=== PATIENT | female | born 1950 | race Caucasian/White ===

== ENCOUNTER 2019-05-09 12:54 | Emergency (ER) | payer MEDICARE, MEDICAID ==
[~2019-05-09] VITALS: Ht 152.4 cm; Wt 90.0 kg
[~2019-05-09 12:54] MED LIST: ACET-812 PO; ALBU18HF2 INH; ARIP400S3 IM; CELE-193 PO; CETI10TA15 PO; CHOL400T14 PO; DEXT1CAP3 PO; DIVA-76 PO; DOCU-329 PO; FURO-150 PO; LEVO75TA PO; LISI-600 PO; LORA2TAB96 PO; METF500T PO; NITR0.4T51 SL; NITR50CA PO; PALI234D IM; POLY17PO10 PO; POTA8TAB3 PO; SOLI10TA2 PO; VENL-190 PO
--- NOTE | 2019-05-09 13:15 | NUR ---
PATIENT BIB EMS WITH C/O WANDERING OUT OF CARE FACILITY. CONSERVATOR THOUGHT PATIENT WAS DANGER TO SELF AND CALLED [facility], WHO WENT TO THE JAIL AND WROTE [id number]. PATIENT IS ALERT AND COOPERATIVE ON ARRIVAL. THOUGHT PROCESSES ARE DISORGANIZED, BUT SHE IS ABLE TO ANSWER BASIC QUESTIONS. PATIENT HAVING THOUGHTS TO HARM HERSELF BY CUTTING HER WRISTS AND WANTS TO GO TO [employer] FOR THE ITEMS TO CARRY OUT PLAN BECAUSE "THEY ARE HAVING A SALE". WORRY ABOUT GETTING CORONAVIRUS AND DOES NOT WANT TO BE "IN THE WORLD" ANYMORE.
[2019-05-09 13:19] LABS: BASOPHILS % (AUTO) 0.5 % (0-1); EOSINOPHILS # (AUTO) 0.1 X10'3 (0-0.9); EOSINOPHILS % (AUTO) 2.5 % (0-6); HEMATOCRIT 33.2 % (35.0-45.0); HEMOGLOBIN 11.2 g/dl (12.0-16.0); LYMPHOCYTES # (AUTO) 1.6 X10'3 (1.1-4.8); LYMPHOCYTES % (AUTO) 27.9 % (21-51); MEAN CORPUSCULAR HEMOGLOBIN 30.1 PG (27.0-31.0); MEAN CORPUSCULAR HGB CONC 33.6 g/dL (33.0-36.5); MEAN CORPUSCULAR VOLUME 89.6 FL (78-98); MEAN PLATELET VOLUME 7.9 FL (7.4-10.4); MONOCYTES # (AUTO) 0.6 X10'3 (0-0.9); NEUTROPHILS # (AUTO) 3.4 X10'3 (1.8-7.7); NEUTROPHILS % (AUTO) 58.1 % (42-75); PLATELET COUNT 194 X10'3 (140-440); RED BLOOD COUNT 3.71 X10'6 (4.20-5.60); RED CELL DISTRIBUTION WIDTH 14.3 % (11.5-14.5); WHITE BLOOD COUNT 5.8 X10'3 (4.5-11.0)
[2019-05-09 13:36] LABS: ALANINE AMINOTRANSFERASE 13 U/L (12-78); ALBUMIN 3.2 G/DL (3.4-5.0); ALBUMIN/GLOBULIN RATIO 0.9 (1.1-1.5); ALKALINE PHOSPHATASE 50 IU/L (46-116); ANION GAP 1 (8-16); ASPARTATE AMINO TRANSFERASE 13 U/L (10-37); BILIRUBIN,TOTAL 0.3 MG/DL (0.1-1.0); BLOOD UREA NITROGEN 24 MG/DL (7-18); BUN/CREATININE RATIO 26.1 (6.6-38.0); CALCIUM 9.8 MG/DL (8.5-10.1); CHLORIDE 105 MMOL/L (99-107); CREATININE 0.92 MG/DL (0.40-0.90); GLUCOSE 133 MG/DL (70-104); SODIUM 141 MMOL/L (135-145); TOTAL CARBON DIOXIDE 34.7 MMOL/L (24-32); TOTAL PROTEIN 6.8 G/DL (6.4-8.2); eGFR 60 ML/MIN
[2019-05-09 14:09] LABS: URINE AMPHETAMINE SCREEN NEGATIVE (Neg); URINE BARBITUATE SCREEN NEGATIVE (Neg); URINE BENZODIAZEPINES SCREEN NEGATIVE (Neg); URINE CANNABINOID SCREEN NEGATIVE (Neg); URINE COCAINE SCREEN NEGATIVE (Neg); URINE METHADONE SCREEN NEGATIVE (Neg); URINE OPIATE SCREEN NEGATIVE (Neg); URINE PHENCYCLIDINE SCREEN NEGATIVE (Neg)
[2019-05-09 14:11] LABS: ETHANOL < 0.010 GM/DL (0.0-0.010)
[2019-05-09 14:12] LABS: CLARITY,URINE CLEAR (Clear); COLOR,URINE YELLOW (Yellow); GLUCOSE, URINE NEGATIVE (Neg); KETONES,URINE TRACE mg/dl (Neg); LEUKOCYTE ESTERASE ,URINE NEGATIVE (Neg); NITRITES, URINE NEGATIVE (Neg); OCCULT BLOOD,URINE NEGATIVE (Neg); PROTEIN,URINE NEGATIVE (Neg); UROBILINOGEN,URINE 0.2 E.U/dL (0.2-1.0)
[2019-05-09 14:14] LABS: UA COLLECTION TYPE STRAIGHT CATH
[2019-05-09] MEDS ORDERED: FLUT16SP11 BOTHNARES (17:41)
[2019-05-09] MEDS ORDERED: SODI44SP2 NAS (17:41)
--- NOTE | 2019-05-09 18:15 | NUR ---
Assumed care of patient. Pt. sleeping in ER room 14. Pt. has to be shaken to arouse. Pt. is moved to overflow bed 21. Pt. is calm and cooperative during move.
[2019-05-09] MEDS ORDERED: celeCOXIB 100mg capsule PO PRN (20:05)
[2019-05-09] MEDS ORDERED: nitroGLYCERIN 0.4mg SUBLingual tab SL PRN (20:05)
[2019-05-09] MEDS ORDERED: albuterol 2.5 MG/3 ML nebule NEB PRN (20:15)
[2019-05-09] MEDS ORDERED: acetaminophen 325mg tablet PO PRN (20:20)
--- NOTE | 2019-05-09 20:40 | NUR ---
Pt. is sitting up in her bed eating a snack. Pt is calm and cooperative. Pt. is alert and confused, able to answer why she is here, but unsure where here is. Pt. states "I went on a walk." Pt. denies SI at this time, but did say "I said I wanted to hurt myself, but I didn't mean it." Pt. 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 is up to bedside commode, states she uses a walker at home. Pt's anterior calves are red with trace of edema - will need to monitor. Pt. has a history of DMII and cellulitis. Pt. is on Macrodantin for UTI, not sure how long she has been taking it. Pt's urine was WNL.
--- NOTE | 2019-05-09 20:47 | NUR ---
pt packet faxed to [facility]
[2019-05-09] MEDS ORDERED: nitrofurantoin macrocrystal 50mg capsule PO SCH (21:00)
[2019-05-09] MEDS ORDERED: divalproex sodium 500mg tablet.DR PO SCH (21:00)
[2019-05-09] MEDS ORDERED: LORazepam 1 MG tablet PO SCH (21:00)
--- NOTE | 2019-05-09 21:20 | NUR ---
Pt's med rec from home indicates she takes 4mg of Lorazepam HS, not comfortable giving this dose. Spoke with - decreased Ativan to 2mg.
--- NOTE | 2019-05-09 23:33 | NUR ---
Pt. sleeping comfortable in supine position. Respirations even and unlabored.
--- NOTE | 2019-05-09 23:52 | NUR ---
Client to be admitted to [facility] for Bipolar DO per ADAM Helm/Perla Sher MD.
[2019-05-10] MEDS ORDERED: oxybutynin 5mg tablet PO SCH
--- NOTE | 2019-05-10 00:09 | NUR ---
Patient being transferred to [facility].
--- NOTE | 2019-05-10 02:15 | NUR ---
Patient was transferred up to [facility] via wheelchair. Pt. was accompanied by Cielo, LOTUS and security. Pt. was a little groggy due to being woken up. Pt. used bedside commode prior to transfer. Pt's belongings accompanied pt.
[2019-05-10 02:17] VITALS: BP 147/85
[2019-05-10] MEDS ORDERED: metFORMIN 500mg tablet PO SCH (07:00)
[2019-05-10] MEDS ORDERED: levoTHYROXINE 75mcg tablet PO SCH (08:00)
[2019-05-10] MEDS ORDERED: divalproex sodium 500mg tablet.DR PO SCH (08:00)
[2019-05-10] MEDS ORDERED: LORazepam 1 MG tablet PO SCH (08:00)
[2019-05-10] MEDS ORDERED: cholecalciferol (vitamin D) 400 unit tablet PO SCH (08:00)
[2019-05-10] MEDS ORDERED: docusate sod 250mg capsule PO SCH (08:00)
[2019-05-10] MEDS ORDERED: polyethylene glycol 3350 17gm powd pack PO SCH (08:00)
[2019-05-10] MEDS ORDERED: fluticasone nasal spray 16GM bottle NS SCH (08:00)
[2019-05-10] MEDS ORDERED: salt irrigation nasal spray 45 ML SPRAY NS SCH (08:00)
[2019-05-10] MEDS ORDERED: furosemide 20MG tablet PO SCH (08:00)
[2019-05-10] MEDS ORDERED: potassium chloride 8mEq ER tablet PO SCH (08:00)
[2019-05-10] MEDS ORDERED: venlafaxine XR 75mg capsule (Q24H) PO SCH (08:00)
[2019-05-10] MEDS ORDERED: cetirizine 10mg tablet PO SCH (08:00)
[2019-05-10] MEDS ORDERED: lisinopril 20mg tablet PO SCH (08:00)
[2019-06-09] MEDS ORDERED: aripiprazole 400mg suspension ER syringe IM SCH (08:00)
== END 2019-05-10 02:20 ==
LOC: ER 12:55
DX: F03.90 Unspecified dementia, unspecified severity, without behavioral disturbance, psychotic disturbance, mood disturbance, and anxiety (principal); R41.0 Disorientation, unspecified; I25.10 Atherosclerotic heart disease of native coronary artery without angina pectoris; I10 Essential (primary) hypertension; E11.9 Type 2 diabetes mellitus without complications; Z90.710 Acquired absence of both cervix and uterus; Z98.890 Other specified postprocedural states; Z98.51 Tubal ligation status; Z79.899 Other long term (current) drug therapy; Z88.2 Allergy status to sulfonamides
CPT/HCPCS: 36415; 80053; 80305; 80320; 81003; 84443; 85025; 99285

== ENCOUNTER 2019-05-10 00:05 | Inpatient (IN) | payer MEDICARE, MEDICAID ==
[~2019-05-10] VITALS: Ht 152.4 cm; Wt 63.3 kg
[~2019-05-10 00:05] MED LIST changes: +FLUT16SP11 BOTHNARES; -PALI234D IM; +SODI44SP2 NAS
--- NOTE | 2019-05-10 01:51 | NUR ---
ADMIT NOTE: LEGAL HOLD: [facility] conserved/5150 for DTS. Client admitted from ED. Client is currently living in a Board and Care, which she left and refused to return. Client reported that she was going to the hardware store (because they were having a sale) to buy items to kill herself. Client was assessed by [facility] and placed on a hold. Client has a hx of Bipolar DO and dementia. She has been cooperative with EMS and ED staff since admission. Client uses a walker for ambulation. Client arrived on the unit at 02:15 accompanied by Cielo Choi. Client transported in wheelchair. A set of vital signs were obtained, personal belongings were inventoried, a skin and physical assessment were done by Velia Ross 5150 Advisement was provided to client. Client cooperated with admission.
[2019-05-10] MEDS ORDERED: magnesium hydroxide 30ml (MOM) UD suspension PO PRN (02:05)
[2019-05-10] MEDS ORDERED: LORazepam 1 MG tablet PO PRN (02:05)
[2019-05-10] MEDS ORDERED: loperamide 2mg capsule PO PRN (02:05)
[2019-05-10] MEDS ORDERED: hydrOXYzine 25 MG tablet PO PRN (02:05)
[2019-05-10] MEDS ORDERED: mag hydrox/Alum hydrox/simeth 30ml oral suspension PO PRN (02:05)
[2019-05-10 03:00] VITALS: BP 140/67
[2019-05-10 07:43] VITALS: BP 140/79
--- NOTE | 2019-05-10 14:40 | NUR ---
Nursing Progress Note: Legal hold: LPS conserved. Client on voluntary/involuntary status for GD/ DTS. Report received from CLOVER Mcdonald with use of SBAR Why are they here: Client admitted from ED. Client is currently living in a Board and Care, which she left and refused to return. Client reported that she was going to the hardware store (because they were having a sale) to buy items to kill herself. Client was assessed by [facility] and placed on a hold. Client has a hx of Bipolar DO and dementia. She has been cooperative with EMS and ED staff since admission. Client uses a walker for ambulation. . Assessment What has happened this shift: Patient was with PCT at time of change of shift. Very pleasant, with tangential thoughts I like your glasses, that is a pretty .... When asked why she is here, she responds I was acting out but would not elaborate. Evaluated BLE which are reddened and painful to touch, no increased warmth or signs of injury. Patient states they have been this way a long time. Plan to have hospitalist evaluate. Denies A/V Hallucinations, does admit she is sad. States my doesnt live with me anymore When asked why she states he patient then states what makes her saddest is that she was bad and just left referring to why she is now here. She then looks at this writers shoes stating you wear black shoes, I wear socks. Evaluated by Hospitalist believes reddened legs are a result of poor perfusion, requests nursing to watch for any further symptoms. S/I, H/I: Denies I am sad A/VH: Denies Sleep: 2 hours reported ADL's: With assistance Group attendance: No groups Were meds taken: Yes Any med S/E: none observed or reported Mental Status Exam Appearance: Neatly groomed, wearing green scrub pants, personal shirt and slipper socks Eye contact: Direct Behavior: Calm, cooperative Speech: soft, fluctuates between Singaporean and Wolof Mood: Euthymic Affect: Congruent with mood Thought process: Tangential Thought Content: whatever her focus of interest is at the time Cognition: A & O X 3 Insight: poor Judgment: poor Interventions PRN's used: None Therapeutic interventions: 1:1 assessment, encouraged pt to express thoughts and feelings, active listening, therapeutic conversation, medication administration/education/ monitoring, encouragement to perform personal hygiene/skin care, behavior monitoring, line of sight for safety Restraints/seclusion/emergency medication: none required Justification of Continued Inpatient Treatment: Pt continues to require a safe and supportive environment, and remains GD r/t mental health. Is LPS conserved and awaiting placement.
[2019-05-10 19:00] VITALS: BP 168/71
[2019-05-10] MEDS ORDERED: nitroGLYCERIN 0.4mg SUBLingual tab SL PRN (19:20)
[2019-05-10] MEDS ORDERED: non-formulary drug (Acetaminophen (Tylenol Extra Strength) 1 TABLET) PO PRN (19:20)
[2019-05-10] MEDS ORDERED: aripiprazole 400mg suspension ER syringe IM SCH (19:20)
[2019-05-10] MEDS ORDERED: albuterol 2.5 MG/3 ML nebule NEB PRN (19:45)
[2019-05-10] MEDS: NUEDEXTA PO SCH (20:00)
[2019-05-10] MEDS: docusate sod 250mg capsule PO SCH (20:00)
[2019-05-10] MEDS: polyethylene glycol 3350 17gm powd pack PO SCH (20:00)
[2019-05-10] MEDS ORDERED: nitrofurantoin macrocrystal 50mg capsule PO SCH (21:00)
[2019-05-10] MEDS ORDERED: LORazepam 1 MG tablet PO SCH (21:00)
[2019-05-10] MEDS: oxybutynin 5mg tablet PO SCH (21:59)
[2019-05-10] MEDS: LORazepam 1 MG tablet PO SCH (21:59)
[2019-05-10] MEDS: divalproex sodium 500mg tablet.DR PO SCH (22:00)
[2019-05-10] MEDS: potassium chloride 8mEq ER tablet PO SCH (22:00)
[2019-05-10] MEDS: traZODone 50mg tablet PO PRN (23:24)
--- NOTE | 2019-05-11 00:54 | NUR ---
Nursing Progress Note: Legal hold: LPS conserved. Client on involuntary status for GD/ DTS. Report received from LILY Morrison with use of SBAR Why are they here: Client admitted from ED. Client is currently living in a Board and Care, which she left and refused to return. Client reported that she was going to the hardware store (because they were having a sale) to buy items to kill herself. Client was assessed by [facility] and placed on a hold. Client has a hx of Bipolar DO and dementia. She has been cooperative with EMS and ED staff since admission. Client uses a walker for ambulation. . Assessment What has happened this shift: Patient was sitting in her room finishing her dinner at shift change. This staff writer introduced self and pt. remembered this staff writer from down in Overflow. "Pt immediately begins with "I like your shoes, I like your glasses." "You got your shoes at [employer]." Pt. continues to be tangential and disorganized. "I can take a picture of myself." "I just lost my yearbook." "I went to [employer], it has been torn down." Pt. states "I am at "[facility]", but does not talk about how she got here. Pt. randomly spells out different words when she speaks. Pt. denies SI/HI, A/VH. Pt. states "I never wanted to hurt myself," when asked about SI. Pt states "I am not afraid anymore." Pt. is friendly and giggles at herself. Pt sings and each time staff walk by her door, she waves and says hello. Pt. does need assistance up to the bathroom, pt is reminded to use her call light and FWW. Pt. declined taking her Miralax and Colace. Pt. states she had a big, and hold her arms out wide, bowel movement. "I promise I had one." Pt's legs are red and warm to the touch, no c/o of pain. Pt's feet are elevated with pillows when in bed. Pt. is on Nudexta (quinidine), but medication is unavailable through the pharmacy, will need Conservator to bring in home med, will endorse to day shift. Pt. having Valproate level and A1c drawn in the A.M. Pt. was administered Trazadone 50mg, pt was till awake at 2330 and up coloring in her bed. Trazadone was effective. S/I, H/I: Pt. denies. "I will never say that again." (about wanting to harm herself.) A/VH: Pt. denies, none observed. Sleep: Currently sleeping. Trazadone 50mg was administered. Pt was still awake at 2330. See Sleep Assessment for total hours. ADL's: With assistance. Pt. uses FWW. Pt incontinent wears depends. Group attendance: stereotype finisher, no group. Were meds taken: Takes medication without hesitation. Pt. declined Miralax and Colace. Any med S/E: None observed or reported. Mental Status Exam Appearance: Neatly groomed, wearing green scrub top with blue sweater over it, blue pants and a blue hat. Eye contact: Direct Behavior: Calm, chatty, friendly Speech: Soft, talkative, increased rate. Mood: Euthymic, bright Affect: Congruent with mood Thought process: Tangential, disorganized Thought Content: Whatever her focus of interest is at the time Cognition: A & O X 3 Insight: Poor Judgment: Poor Interventions PRN's used: Trazadone Therapeutic interventions: 1:1 assessment, active listening, therapeutic conversation, medication administration/education/ monitoring, encouragement to perform personal hygiene/skin care, assist with some ADL's; Q15 min safety checks. Restraints/seclusion/emergency medication: N/A Justification of Continued Inpatient Treatment: Pt continues to require a safe and supportive environment, and remains GD r/t mental health. Is LPS conserved and awaiting placement.
[2019-05-11 07:30] VITALS: BP 160/76
[2019-05-11 07:51] VITALS: BP 160/76
[2019-05-11] MEDS: polyethylene glycol 3350 17gm powd pack PO SCH ×2 (08:00→20:00)
[2019-05-11] MEDS: NUEDEXTA PO SCH ×2 (08:00→20:00)
[2019-05-11] MEDS: lactobacillus rhamnosus 10,000 MMU CELLS/CAPSULE PO SCH (08:08)
[2019-05-11] MEDS: oxybutynin 5mg tablet PO SCH ×3 (08:08→21:16)
[2019-05-11] MEDS: venlafaxine XR 75mg capsule (Q24H) PO SCH (08:08)
[2019-05-11] MEDS: potassium chloride 8mEq ER tablet PO SCH ×2 (08:08→21:15)
[2019-05-11] MEDS: furosemide 20MG tablet PO SCH (08:08)
[2019-05-11] MEDS: LORazepam 1 MG tablet PO SCH ×2 (08:09→21:14)
[2019-05-11] MEDS: cholecalciferol (vitamin D) 400 unit tablet PO SCH ×2 (08:09→21:14)
[2019-05-11] MEDS: docusate sod 250mg capsule PO SCH ×2 (08:09→20:00)
[2019-05-11] MEDS: levoTHYROXINE 75mcg tablet PO SCH (08:09)
[2019-05-11] MEDS: divalproex sodium 500mg tablet.DR PO SCH ×2 (08:09→21:15)
[2019-05-11] MEDS: cetirizine 10mg tablet PO SCH (08:09)
[2019-05-11] MEDS: lisinopril 20mg tablet PO SCH (08:12)
[2019-05-11] MEDS: salt irrigation nasal spray 45 ML SPRAY NS SCH (08:12)
[2019-05-11 11:32] LABS: CHOL/HDL RATIO 2.9 (0.00-4.99); CHOLESTEROL 212 MG/DL (0-200); HDL CHOLESTEROL 72 MG/DL (35-60); LDL CHOLESTEROL 103 MG/DL (50-100); TRIGLYCERIDES 177 MG/DL (20-135); VALPROATE 80 UG/ML (50-100)
[2019-05-11] MEDS: acetaminophen 325mg tablet PO PRN ×2 (15:11→21:34)
--- NOTE | 2019-05-11 15:13 | NUR ---
Nursing Progress Note: Amelia Legal hold: LPS conserved. Client on involuntary status for GD/ DTS. Report received from CLOVER Mcdonald with use of SBAR Why are they here: Client admitted from ED. Client is currently living in a Board and Care, which she left and refused to return. Client reported that she was going to the hardware store (because they were having a sale) to buy items to kill herself. Client was assessed by [facility] and placed on a hold. Client has a hx of Bipolar DO and dementia. She has been cooperative with EMS and ED staff since admission. Client uses a walker for ambulation. . Assessment What has happened this shift: Patient was sound asleep at change of shift. Upon awakening, found to be saturated in urine. Assisted to BR and before she could sit down on the toilet, was incontinent of urine which covered the floor. Once in clean scrubs, ambulated to shower. Bathed with minimal assist. Took medications except for Miralax stating I had a BM yesterday, I dont need it. Patient denies depression or SI. Continues with tangential speech pattern jumping from one topic to another. Remains very pleasant and cooperative. Just prior to lunch, patient had a second episode of incontinence and was assisted by staff, per patient and supported by staff at [facility]. Patient does wear two briefs at a time to avoid these episodes. Remains in room but is friendly and waves at anyone who walks by. While meeting with provider, asked nurse for tylenol for neck pain. After taking the medication she then requested a bandaid for a bruise left by the wellness nurse rn stating she was redirecting my veins. S/I, H/I: I was just kidding, I had a coupon A/VH: Denies Sleep: 6.25 ADL's: Independent, according to [facility], they do not assist her. Group attendance: Currently no groups due to COVID 19 Were meds taken: yes, except for Miralax Any med S/E: Patient denies Mental Status Exam Appearance: Showered, wearing green scrubs due to incontinence. Eye contact: good Behavior: appropriate, calm Speech: enjoys being around others, is hard of hearing Mood: Upbeat Affect: Congruent with mood Thought process: disorganized, circumstantial Thought Content: whatever her current thoughts are (unable to stay focused on just one topic) Cognition: A & O X 3 Insight: Poor Judgment: Poor Interventions PRN's used: none Therapeutic interventions: 1:1 assessment, active listening, therapeutic conversation, medication administration/education/ monitoring, encouragement to perform personal hygiene/skin care, assist with some ADL's; Q15 min safety checks. Restraints/seclusion/emergency medication: N/A Justification of Continued Inpatient Treatment: Pt continues to require a safe and supportive environment, and remains GD r/t mental health. Is LPS conserved and awaiting placement.
[2019-05-11 19:00] VITALS: BP 122/56
[2019-05-11] MEDS: nitrofurantoin macrocrystal 50mg capsule PO SCH (21:16)
[2019-05-11] MEDS: atorvastatin 10mg tablet PO SCH (21:17)
[2019-05-11] MEDS: traZODone 50mg tablet PO PRN (22:32)
[2019-05-12] MEDS: traZODone 50mg tablet PO PRN (00:13)
--- NOTE | 2019-05-12 02:23 | NUR ---
Nursing Progress Note: Legal hold: LPS conserved. Client on involuntary status for GD/ DTS. Report received from LILY Morrison with use of SBAR Why are they here: Client admitted from ED. Client is currently living in a Board and Care, which she left and refused to return. Client reported that she was going to the hardware store (because they were having a sale) to buy items to kill herself. Client was assessed by [facility] and placed on a hold. Client has a hx of Bipolar DO and dementia. She has been cooperative with EMS and ED staff since admission. Client uses a walker for ambulation. . Assessment What has happened this shift: Pt. was sitting in her room finishing her dinner at shift change. Pt. greets this copywriter with a smile and begins with her "I like...." Pt. makes random statements about her family. "I saw by brother again." "I miss my brother." "My mom used to shake me (and pt. rocks back and forth." Pt. likes to talk to talk. "I am [employer]," "I am witchy woman." Pt. takes medication without incident. Pt. is familiar with each of her medications and knows most of her pills by sight. Pt. declines her Colace and Miralax "I already had a BM." Pt. having regular BM, these meds could probably be d/c. Valproic level was 80 (50-100 range). Pt requested PRN Tylenol for 10/10 neck pain, with effect. Pt. was administered PRN Trazadone around 2230, pt having trouble falling asleep. Pt. woke up around 2345 and was seen walking around her room with her FWW. Pt. was assisted to the bathroom. Pt's depends was dry. Trazadone was repeated at 0013 and pt. fell back to sleep around 0210. S/I, H/I: Pt. denies. "I will never say that again." (about wanting to harm herself.) A/VH: Pt. denies, none observed. Sleep: Currently sleeping. Trazadone 50mg MRx1 was administered. See Sleep Assessment for total hours. ADL's: With assistance. Pt. ambulates w/FWW. Pt incontinent wears depends. Group attendance: lead systems architect, no group. Were meds taken: Takes medication without hesitation. Pt. declined Miralax and Colace. Any med S/E: None observed or reported. Mental Status Exam Appearance: Neatly groomed, wearing green scrub top with blue sweater over it, blue pants and a blue hat. Eye contact: Fair Behavior: Calm, chatty, friendly Speech: Hyperverbal, spells words. Mood: Euthymic, bright Affect: Congruent with mood Thought process: Less tangential, less disorganized Thought Content: Whatever her focus of interest is at the time Cognition: A & O X 3, forgetful Insight: Poor Judgment: Poor Interventions PRN's used: Trazadone, Tylenol Therapeutic interventions: 1:1 assessment, active listening, therapeutic conversation, medication administration/education/ monitoring, encouragement to perform personal hygiene/skin care, assist with some ADL's; Q15 min safety checks. Restraints/seclusion/emergency medication: N/A Justification of Continued Inpatient Treatment: Pt continues to require a safe and supportive environment, and remains GD r/t mental health. Is LPS conserved and awaiting placement.
[2019-05-12 07:40] VITALS: BP 157/63
[2019-05-12] MEDS: furosemide 20MG tablet PO SCH (08:42)
[2019-05-12] MEDS: cetirizine 10mg tablet PO SCH (08:42)
[2019-05-12] MEDS: levoTHYROXINE 75mcg tablet PO SCH (08:42)
[2019-05-12] MEDS: cholecalciferol (vitamin D) 400 unit tablet PO SCH ×2 (08:42→20:52)
[2019-05-12] MEDS: docusate sod 250mg capsule PO SCH ×2 (08:42→20:50)
[2019-05-12] MEDS: lactobacillus rhamnosus 10,000 MMU CELLS/CAPSULE PO SCH (08:42)
[2019-05-12] MEDS: divalproex sodium 500mg tablet.DR PO SCH ×2 (08:42→20:51)
[2019-05-12] MEDS: lisinopril 20mg tablet PO SCH (08:43)
[2019-05-12] MEDS: LORazepam 1 MG tablet PO SCH ×2 (08:44→20:52)
[2019-05-12] MEDS: oxybutynin 5mg tablet PO SCH ×3 (08:46→20:52)
[2019-05-12] MEDS: venlafaxine XR 75mg capsule (Q24H) PO SCH (08:47)
[2019-05-12] MEDS: polyethylene glycol 3350 17gm powd pack PO SCH ×2 (08:47→20:53)
[2019-05-12] MEDS: potassium chloride 8mEq ER tablet PO SCH ×2 (08:54→20:50)
[2019-05-12] MEDS: nitrofurantoin macrocrystal 50mg capsule PO SCH ×2 (08:54→20:51)
[2019-05-12] MEDS: celeCOXIB 100mg capsule PO PRN (08:55)
[2019-05-12] MEDS: salt irrigation nasal spray 45 ML SPRAY NS SCH (08:55)
[2019-05-12] MEDS: fluticasone nasal spray 16GM bottle NS PRN (08:55)
--- NOTE | 2019-05-12 16:29 | NUR ---
Nursing Progress Note Legal hold: LPS conserved. Client on involuntary status for GD/ DTS. Report received from CLOVER Mcdonald with use of SBAR Why are they here: Client admitted from ED. Client is currently living in a Board and Care, which she left and refused to return. Client reported that she was going to the hardware store (because they were having a sale) to buy items to kill herself. Client was assessed by [facility] and placed on a hold. Client has a hx of Bipolar DO and dementia. She has been cooperative with EMS and ED staff since admission. Client uses a walker for ambulation. . Assessment What has happened this shift: Pt sleeping at start of shift. Ambulated later in the day up and down the mcdonald with supervision. She is pleasant. Incontinent of both urine and stool requires assistance and monitoring in BR. S/I, H/I: "Yes, Yes" I listen to it." A/VH: Denies Sleep: Naps throughout the day ADL's: Incontinent of urine and stool requires care all day Group attendance: Sat in chair most of the day sleeping. Were meds taken: yes, except for Miralax Any med S/E: None noted or observed Mental Status Exam Appearance: Sponge bath and change of clothing Eye contact: Fair Behavior: Drowsy Speech: Mumbles Mood: Labile Affect: Congruent with mood Thought process: tangential Thought Content: Pt rambles on about whatever is going on in the moment Cognition: A & O X 3 Insight: Poor Judgment: Poor Interventions PRN's used: none Therapeutic interventions: 1:1 assessment, active listening, therapeutic conversation, medication administration/education/ monitoring, encouragement to perform personal hygiene/skin care, assist with some ADL's; Q15 min safety checks. Restraints/seclusion/emergency medication: N/A Justification of Continued Inpatient Treatment: Pt continues to require a safe and supportive environment, and remains GD r/t mental health. Is LPS conserved and awaiting placement.
[2019-05-12 20:00] VITALS: BP 141/80
[2019-05-12] MEDS: atorvastatin 10mg tablet PO SCH (20:51)
--- NOTE | 2019-05-13 00:35 | NUR ---
Nursing Progress Note Legal hold: LPS conserved. Client on involuntary status for GD/ DTS. Report received from CLOVER Morrison with use of SBAR Why are they here: Client admitted from ED. Client is currently living in a Board and Care, which she left and refused to return. Client reported that she was going to the hardware store (because they were having a sale) to buy items to kill herself. Client was assessed by [facility] and placed on a hold. Client has a hx of Bipolar DO and dementia. She has been cooperative with EMS and ED staff since admission. Client uses a walker for ambulation. . Assessment What has happened this shift: Pt sitting in room at start of shift. Wearing depends but urine had soaked through to scrub bottoms. Pt aware she has been incontinent and is apologetic. Assisted to bathroom requested help standing FWW to ambulate. Assisted with pericare and change of clothes. Pt agreed to be awakened in middle of night for toileting. pt assisted to toilet at HS before going to bed. Pt did not come out of room all shift. Sat in chair reading a book and dozing off. Cooperative with care took all medications after inspecting each one. Pt can recognize by sight almost all of her pills S/I, H/I: denied A/VH: Denies Sleep: asleep at this time ADL's: Incontinent of urine and stool requires care all day Group attendance: NA Were meds taken: yes, Any med S/E: None noted or observed Mental Status Exam Appearance: Obese wearing hospital scrubs. Eye contact: Fair Behavior: Cooperative Speech: Mumbles Mood: Pleasant all shift Affect: Congruent with mood Thought process: tangential Thought Content: Pt rambles on about whatever is going on in the moment Cognition: A & O X 3 Insight: Poor Judgment: Poor Interventions PRN's used: none Therapeutic interventions: 1:1 assessment, active listening, therapeutic conversation, medication administration/education/ monitoring, encouragement to perform personal hygiene/skin care, assist with some ADL's; Q15 min safety checks. Restraints/seclusion/emergency medication: N/A Justification of Continued Inpatient Treatment: Pt continues to require a safe and supportive environment, and remains GD r/t mental health. Is LPS conserved and awaiting placement.
[2019-05-13 07:27] VITALS: BP 125/65
[2019-05-13] MEDS: nitrofurantoin macrocrystal 50mg capsule PO SCH (07:53)
[2019-05-13] MEDS: venlafaxine XR 75mg capsule (Q24H) PO SCH (07:54)
[2019-05-13] MEDS: oxybutynin 5mg tablet PO SCH ×3 (07:55→20:47)
[2019-05-13] MEDS: lactobacillus rhamnosus 10,000 MMU CELLS/CAPSULE PO SCH (07:55)
[2019-05-13] MEDS: cholecalciferol (vitamin D) 400 unit tablet PO SCH ×2 (07:56→20:46)
[2019-05-13] MEDS: furosemide 20MG tablet PO SCH (07:56)
[2019-05-13] MEDS: potassium chloride 8mEq ER tablet PO SCH ×2 (07:56→20:45)
[2019-05-13] MEDS: docusate sod 250mg capsule PO SCH ×2 (07:56→20:45)
[2019-05-13] MEDS: cetirizine 10mg tablet PO SCH (07:57)
[2019-05-13] MEDS: levoTHYROXINE 75mcg tablet PO SCH (07:57)
[2019-05-13] MEDS: divalproex sodium 500mg tablet.DR PO SCH ×2 (07:58→20:47)
[2019-05-13] MEDS: lisinopril 20mg tablet PO SCH (07:59)
[2019-05-13] MEDS: fluticasone nasal spray 16GM bottle NS PRN (08:07)
[2019-05-13] MEDS: salt irrigation nasal spray 45 ML SPRAY NS SCH (08:08)
[2019-05-13] MEDS: polyethylene glycol 3350 17gm powd pack PO SCH ×2 (08:08→20:46)
[2019-05-13] MEDS: LORazepam 1 MG tablet PO SCH ×2 (08:08→20:47)
[2019-05-13] MEDS: acetaminophen 325mg tablet PO PRN ×2 (09:32→20:49)
--- NOTE | 2019-05-13 10:53 | NUR ---
UNABLE TO RETURN TO BOARD AND CARE Spoke to Malik Escobedo and Larisa, to ensure Amelia is able to return. Fanny reported she gave a verbal 30 day notice to Thais, [facility] Public Guardian (ph# [phone]) on May 08. She reported she is faxing a 30 day notice today to Public Guardian. Fanny reported they are unable to manage Amelia. Fanny noted she also had a conversation with [facility] Team Clinician, Shiela Shah, regarding Amelia's inability to return to the board and care. Informed TAD office and Viola reported she will follow up with Public Guardian. VERITO Shin
--- NOTE | 2019-05-13 17:41 | NUR ---
Nursing Progress Note Legal hold: LPS conserved. Client on involuntary status for GD/ DTS. Report received from CLOVER Berman with use of SBAR Why are they here: Client admitted from ED. Client is currently living in a Board and Care, which she left and refused to return. Client reported that she was going to the hardware store (because they were having a sale) to buy items to kill herself. Client was assessed by [facility] and placed on a hold. Client has a hx of Bipolar DO and dementia. She has been cooperative with EMS and ED staff since admission. Client uses a walker for ambulation. . Assessment What has happened this shift: Pt. awake and sitting in bed at change of shift. Pt. took all medications reluctantly, wanting to discuss each medication. Pt. denies side effects. Pt. ate all her breakfast very slowly. RN asked pt. if she needed to use bathroom, and pt. replied, "Yes, thank you for reminding me". Pt. urinated in toilet independently, pt. was dry. Pt. walked to [facility] room for group movie. Pt. ate all her lunch but was incontinent of urine and changed. 1:1 done done at bedside. Pt. denies SI/HI, A/V hallucinations. Pt. is tangential during interview, RN asked pt. "How do you feel?" and pt. replied, "No I don't peel, but my daughter and I went out for lunch, and then she left me there alone. You have nice hair. Don't love anything more than Nic". Pt. spent the rest of the afternoon sittin in her chair in her room. Pt. received Tylenol x1 for back pain. S/I, H/I: "Yes, Yes" I listen to it." A/VH: Denies Sleep: pt. did not nap on day shift. ADL's: Incontinent of urine and stool requires care all day Group attendance: Pt. participated in group movie. Were meds taken: Yes. Any med S/E: Denies Mental Status Exam Appearance: disheveled wearing clean sweater and hat with soiled green scrub bottoms. Eye contact: Fair Behavior: obsesses over dirt on her shoes and examining her meal multiple times before eating it. Pt. is cooperative and calm. Speech: Mumbles Mood: Labile Affect: Congruent with mood Thought process: tangential, delusional, circumstantial. Thought Content: Pt. jumps from one topic to another. Cognition: A & O X 3 Insight: Poor Judgment: Poor Interventions PRN's used: Tylenol x1 Therapeutic interventions: 1:1 assessment, active listening, therapeutic conversation, medication administration/education/ monitoring, encouragement to perform personal hygiene/skin care, assist with some ADL's; Q15 min safety checks. Restraints/seclusion/emergency medication: N/A Justification of Continued Inpatient Treatment: Pt continues to require a safe and supportive environment, and remains GD r/t mental health. Is LPS conserved and awaiting placement.
[2019-05-13 20:00] VITALS: BP 129/82
[2019-05-13] MEDS: nitrofurantoin macrocrystal 100mg capsule PO SCH (20:46)
[2019-05-13] MEDS: NUEDEXTA PO SCH (20:46)
[2019-05-13] MEDS: atorvastatin 10mg tablet PO SCH (20:48)
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
--- NOTE | 2019-05-14 00:29 | NUR ---
Assumed care received report from Obed BAUTISTA with use of SBAR. Pt sleeping
[2019-05-14] MEDS: traZODone 50mg tablet PO PRN (00:40)
[2019-05-14 08:00] VITALS: BP 150/73
[2019-05-14] MEDS: salt irrigation nasal spray 45 ML SPRAY NS SCH (08:00)
[2019-05-14] MEDS: levoTHYROXINE 75mcg tablet PO SCH (08:26)
[2019-05-14] MEDS: NUEDEXTA PO SCH ×2 (08:26→20:50)
[2019-05-14] MEDS: potassium chloride 8mEq ER tablet PO SCH ×2 (08:27→20:52)
[2019-05-14] MEDS: divalproex sodium 500mg tablet.DR PO SCH ×2 (08:27→20:51)
[2019-05-14] MEDS: nitrofurantoin macrocrystal 100mg capsule PO SCH ×2 (08:28→20:51)
[2019-05-14] MEDS: cetirizine 10mg tablet PO SCH (08:28)
[2019-05-14] MEDS: cholecalciferol (vitamin D) 400 unit tablet PO SCH ×2 (08:28→20:51)
[2019-05-14] MEDS: furosemide 20MG tablet PO SCH (08:29)
[2019-05-14] MEDS: lactobacillus rhamnosus 10,000 MMU CELLS/CAPSULE PO SCH (08:30)
[2019-05-14] MEDS: LORazepam 1 MG tablet PO SCH ×2 (08:30→20:52)
[2019-05-14] MEDS: docusate sod 250mg capsule PO SCH ×2 (08:30→20:51)
[2019-05-14] MEDS: lisinopril 20mg tablet PO SCH (08:30)
[2019-05-14] MEDS: oxybutynin 5mg tablet PO SCH ×3 (08:30→20:53)
[2019-05-14] MEDS: venlafaxine XR 75mg capsule (Q24H) PO SCH (08:31)
[2019-05-14] MEDS: polyethylene glycol 3350 17gm powd pack PO SCH ×2 (08:44→20:00)
[2019-05-14] MEDS: acetaminophen 325mg tablet PO PRN ×2 (10:00→20:51)
--- NOTE | 2019-05-14 17:27 | NUR ---
Nursing Progress Note Legal hold: LPS conserved. Client on involuntary status for GD/ DTS. Report received from CLOVER Berman with use of SBAR Why are they here: Client admitted from ED. Client is currently living in a Board and Care, which she left and refused to return. Client reported that she was going to the hardware store (because they were having a sale) to buy items to kill herself. Client was assessed by [facility] and placed on a hold. Client has a hx of Bipolar DO and dementia. She has been cooperative with EMS and ED staff since admission. Client uses a walker for ambulation. . Assessment What has happened this shift: Pt. is awake and sitting in her chair at start of shift. Pt.s CBG check was 127. Pt. reports she slept well. Pt. slowly took all her medications. Pt. ate all her meals in her room. Pt. eats extremely slowly, sometimes falling asleep during her meal, and if her tray is taken away while she is sleeping pt. becomes upset. 1:1 done ate bedside. Pt. 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 asks, do you know where I studied? And looks at the milk carton and gives the name of the brand of milk. Pt. denies SI/HI but reports hearing voices that give her instructions, but does not specify what they say. Pt. appears [place] selectively, asking this RN to repeat multiple times the same question right next to her ear, and other times speaking in a normal tone from across the room pt. understands the first time. Pt. was dry this AM, but after breakfast she needed to be changed. Pt. isolates to her room. Pt. falls asleep often in her chair and encouraged to lay down, but pt. refuses, wanting to stay in her chair. Pt. requested Tylenol for back pain with minimal effect. Pt. refused lunch. Pt. showered in the afternoon. S/I, H/I: Denies A/VH: Reports hearing voices that give her instructions but does not specify what they say. Sleep: Pt. napped multiple times throughout the day. ADL's: Incontinent of urine and stool. Group attendance: No groups Were meds taken: Yes. Any med S/E: Denies Mental Status Exam Appearance: disheveled wearing clean sweater over green hospital scrubs. Eye contact: Fair Behavior: Isolative but social when patients and staff stop in front of her room. Speech: Mumbles at times. Mood: Labile Affect: Congruent with mood Thought process: tangential, delusions of grandeur, and circumstantial. Thought Content: Pt. jumps from one topic to another. Cognition: A & O X 3 Insight: Poor Judgment: Poor Interventions PRN's used: Tylenol x1 Therapeutic interventions: 1:1 assessment, active listening, therapeutic conversation, medication administration/education/ monitoring, encouragement to perform personal hygiene/skin care, assist with some ADL's; Q15 min safety checks. Restraints/seclusion/emergency medication: N/A Justification of Continued Inpatient Treatment: Pt continues to require a safe and supportive environment, and remains GD r/t mental health. Is LPS conserved and awaiting placement.
[2019-05-14 20:24] VITALS: BP 132/66
[2019-05-14] MEDS: atorvastatin 10mg tablet PO SCH (20:52)
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
[2019-05-15 07:30] VITALS: BP 135/66
[2019-05-15] MEDS: salt irrigation nasal spray 45 ML SPRAY NS SCH ×2 (08:00→20:38)
[2019-05-15] MEDS: divalproex sodium 500mg tablet.DR PO SCH ×2 (08:00→20:39)
[2019-05-15] MEDS: nitrofurantoin macrocrystal 100mg capsule PO SCH ×2 (08:01→20:39)
[2019-05-15] MEDS: furosemide 20MG tablet PO SCH (08:01)
[2019-05-15] MEDS: cholecalciferol (vitamin D) 400 unit tablet PO SCH ×2 (08:01→20:39)
[2019-05-15] MEDS: oxybutynin 5mg tablet PO SCH ×3 (08:02→20:39)
[2019-05-15] MEDS: lisinopril 20mg tablet PO SCH (08:02)
[2019-05-15] MEDS: potassium chloride 8mEq ER tablet PO SCH ×2 (08:03→20:47)
[2019-05-15] MEDS: cetirizine 10mg tablet PO SCH (08:03)
[2019-05-15] MEDS: LORazepam 1 MG tablet PO SCH ×2 (08:03→20:39)
[2019-05-15] MEDS: levoTHYROXINE 75mcg tablet PO SCH (08:03)
[2019-05-15] MEDS: docusate sod 250mg capsule PO SCH ×2 (08:05→20:38)
[2019-05-15] MEDS: lactobacillus rhamnosus 10,000 MMU CELLS/CAPSULE PO SCH (08:05)
[2019-05-15] MEDS: NUEDEXTA PO SCH ×2 (08:06→20:38)
[2019-05-15] MEDS: venlafaxine XR 75mg capsule (Q24H) PO SCH (08:13)
[2019-05-15] MEDS: polyethylene glycol 3350 17gm powd pack PO SCH ×2 (08:17→20:37)
--- NOTE | 2019-05-15 11:11 | NUR ---
Initial: Pt PO 75-100% avg meals meeting needs admit w/ bipolar DX moderate saranya hx homeless and has conservator. LBM 4/3 though documented as moderate BM today receiving routine colace as well as miralax for bowel care. CASIMIRO left message for RN via TC regarding BM clarification. No nutrition concerns at this time. Will continue to monitor. Rec: 1. continue heart healthy diet 2. routine bowel care 3. wt per rx Addendum: 05/15/19 at [address] Amended: Links added.
--- NOTE | 2019-05-15 13:35 | NUR ---
DISCHARGE PLANNING Faxed a packet to [facility] office as requested for placement. However, Thais, Public Guardian, called and requested documentation that Amelia does NOT have any flu like or Covid type symptoms in order to return to her current Board and Care. Will request this from ADAM Draper. VERITO Shin
[2019-05-15] MEDS: celeCOXIB 100mg capsule PO PRN (14:25)
--- NOTE | 2019-05-15 18:10 | NUR ---
Nursing Progress Note Legal hold: LPS conserved. Client on involuntary status for GD/ DTS. Report received from CLOVER Berman with use of SBAR Why are they here: Client admitted from ED. Client is currently living in a Board and Care, which she left and refused to return. Client reported that she was going to the hardware store (because they were having a sale) to buy items to kill herself. Client was assessed by [facility] and placed on a hold. Client has a hx of Bipolar DO and dementia. She has been cooperative with EMS and ED staff since admission. Client uses a walker for ambulation. . Assessment What has happened this shift: Pt. is awake and sitting in her chair at start of shift. Pt.s CBG check was 123, however, pt. drank orange juice before this RN was able to get her CBG. Pt. ate all her meals in her room and took all her medications. 1:1 done at bedside. Pt. denies SI/HI, however + for auditory hallucinations. Pt. reports her the voices give her directions and are encouraging to her. Pt. reports its the voice of God. Pt. reports she feels happy today, but does not want to return to her usp, pt. informed that she will not be returning to her usp. Pt. was Incontinent of urine x2. After lunch pt. napped majority of afternoon. Pt. received Tylenol and Celebrex for pain x1 with good effect. S/I, H/I: Denies A/VH: Reports hearing voices that give her instructions Sleep: Pt. napped multiple times throughout the day. ADL's: Incontinent of urine x2 today Group attendance: No groups today Were meds taken: Yes. Any med S/E: Denies Mental Status Exam Appearance: disheveled wearing clean, green scrubs Eye contact: Fair Behavior: Isolative but social when patients and staff stop in front of her room. Speech: Mumbles at times. Mood: Labile Affect: Congruent with mood Thought process: tangential, delusions of grandeur, and circumstantial. Thought Content: Pt. jumps from one topic to another. Cognition: A & O X 3 Insight: Poor Judgment: Poor Interventions PRN's used: Tylenol x1, Celebrex x1 Therapeutic interventions: 1:1 assessment, active listening, therapeutic conversation, medication administration/education/ monitoring, encouragement to perform personal hygiene/skin care, assist with some ADL's; Q15 min safety checks. Restraints/seclusion/emergency medication: N/A Justification of Continued Inpatient Treatment: Pt continues to require a safe and supportive environment, and remains GD r/t mental health. Is LPS conserved and awaiting placement.
[2019-05-15 19:30] VITALS: BP 157/66
[2019-05-15] MEDS: atorvastatin 10mg tablet PO SCH (20:39)
--- NOTE | 2019-05-15 23:52 | NUR ---
Nursing Progress Note: Legal hold: LPS conservatorship Client on admitted on an [facility] conservatorship for being a danger to herself and gravely disabled. Report received from Michele BAUTISTA with the use of SBAR format Why are they here: The patient is a 69 year old patient who is on LPS conservatorship and placed in a local care facility. She had decompensated while at the [facility] and was making statements that she wanted to commit suicide and she was wandering away from the facility putting herself at risk. The public guardians office requested that [facility] assess the patient for hospitalization and the patient was admitted to [facility] for being a danger to herself and gravely disabled. Assessment What has happened this shift: The patient was sitting up in her bed and eating her dinner. She ate very slowly and she did not finish eating for at least two hours. She did however eat a majority of her meal. She appeared clean and was dressed in green scrubs and wearing a blue hat. She gave mumbling responses to the assessment questions that did not correlate to what was asked for example when asked what year it was she stated that it was "green" It was difficult to ascertain if it was a hearing impairment but went asked it again she stated it was "pink" She gives rambling tangential replies to the assessment questions. When asked where she would be living after discharge from the unit she replied, "I need to get my bread straight and get to mormonism" She then made odd hand gestures. The patient was able to accurately state the current month and day of the month and stated that she wanted to be discharged before [facility]. S/I, H/I: Denied by the patient A/VH: Denied Sleep: ADL's: Assessed with francisco care and changing of her brief Group attendance: NA Were meds taken: The patient was medication compliant. Any med S/E none reported or observed. Mental Status Exam Appearance: wearing green scrubs and a blue hat Eye contact: intermittent Behavior: Cooperative Speech: monotone and slowed speech Mood: pleasant cooperative Affect: WNL Thought process: Tangential and disorganized Thought Content: Talks frequently about things in the past ie her family Cognition: alert but confused Insight: Poor Judgment: Poor Interventions PRN's used: NA Therapeutic interventions: One to one with the patient to assess severity of thought disorder. Reviewed her medications. Restraints/seclusion/emergency medication:[] Justification of Continued Inpatient Treatment: The patient is here pending discharge back to her board and care.
[2019-05-16] MEDS: polyethylene glycol 3350 17gm powd pack PO SCH ×2 (08:00→20:27)
[2019-05-16 08:11] VITALS: BP 135/81
--- NOTE | 2019-05-16 09:03 | NUR ---
ACCEPTED AT [facility] office called to report that Amelia has been accepted at [facility] in [place]. They requested the Physician's Report and a TB test. Requested a chest x-ray to expedite the process as [facility] has a bed currently. VERITO Shin Addendum: 05/16/19 at 1205 by Ibeth Pollard Update: [facility] is in [facility]. VERITO Shin
[2019-05-16] MEDS: NUEDEXTA PO SCH ×2 (09:56→20:27)
[2019-05-16] MEDS: lactobacillus rhamnosus 10,000 MMU CELLS/CAPSULE PO SCH (09:56)
[2019-05-16] MEDS: LORazepam 1 MG tablet PO SCH ×2 (09:57→20:28)
[2019-05-16] MEDS: venlafaxine XR 75mg capsule (Q24H) PO SCH (09:58)
[2019-05-16] MEDS: docusate sod 250mg capsule PO SCH ×2 (09:59→20:27)
[2019-05-16] MEDS: furosemide 20MG tablet PO SCH (09:59)
[2019-05-16] MEDS: cholecalciferol (vitamin D) 400 unit tablet PO SCH ×2 (09:59→20:27)
[2019-05-16] MEDS: levoTHYROXINE 75mcg tablet PO SCH (10:00)
[2019-05-16] MEDS: divalproex sodium 500mg tablet.DR PO SCH ×2 (10:01→20:27)
[2019-05-16] MEDS: potassium chloride 8mEq ER tablet PO SCH ×2 (10:01→20:27)
[2019-05-16] MEDS: nitrofurantoin macrocrystal 100mg capsule PO SCH ×2 (10:02→20:27)
[2019-05-16] MEDS: cetirizine 10mg tablet PO SCH (10:02)
[2019-05-16] MEDS: oxybutynin 5mg tablet PO SCH ×3 (10:03→20:28)
[2019-05-16] MEDS: lisinopril 20mg tablet PO SCH (10:04)
[2019-05-16] MEDS: acetaminophen 325mg tablet PO PRN ×2 (10:51→21:58)
--- NOTE | 2019-05-16 18:13 | NUR ---
Nursing Progress Note Legal hold: LPS conserved. Client on involuntary status for GD/ DTS. Report received from RN with use of SBAR Why are they here: Client admitted from ED. Client is currently living in a Board and Care, which she left and refused to return. Client reported that she was going to the hardware store (because they were having a sale) to buy items to kill herself. Client was assessed by [facility] and placed on a hold. Client has a hx of Bipolar DO and dementia. She has been cooperative with EMS and ED staff since admission. Client uses a walker for ambulation. . Assessment What has happened this shift: Pt. is awake, sitting and writing in her chair at start of shift. Pt.s CBG check was 130. Pt. reports she slept well. Pt. slowly took all her medications. Pt. ate all her meals in her room. Pt. eats extremely slowly,. Educated on food spoiling after being left out for too long and came to a compromise to keep the food she would eat from the tray and take the rest away. 1:1 done at bedside. Pt. talks about how she speaks 3 different languages I speak ingles, kim. Espanol, dos. Chinese, frankie. Chinese, four. And lula de vargas, thats five. Very tangential. Patient was up and walking around the unit with her FWW interating with patients and staff. Pt. denies SI/HI but reports someone talking to her while we are the only two in the room, but does not specify what they say. After breakfast she needed to be changed but was able to change herself independently with instruction. Pt. requested Tylenol for back pain. S/I, H/I: Denies A/VH: Reports hearing someone talk to her while we are the only 2 in the room but does not specify what they say. Sleep: Pt. napped multiple times throughout the day. ADL's: From report incontinent of urine and stool; only had x1 episode of urinary incontinence. Group attendance: No groups Were meds taken: Yes. Any med S/E: Denies Mental Status Exam Appearance: Dishelved in hospital scrubs. Eye contact: Good Behavior: Social when patients and staff stop to chat with her. Speech: Mumbles at times. Mood: Labile Affect: Congruent with mood Thought process: tangential, delusions of grandeur, and circumstantial. Addendum: 05/16/19 at 1814 by Dougie Hernandez RN Continuation Thought Content: Pt. jumps from one topic to another. Cognition: A & O X 3 Insight: Poor Judgment: Poor Interventions PRN's used: Tylenol x1 Therapeutic interventions: 1:1 assessment, active listening, therapeutic conversation, medication administration/education/ monitoring, encouragement to perform personal hygiene/skin care, assist with some ADL's; Q15 min safety checks. Restraints/seclusion/emergency medication: N/A Justification of Continued Inpatient Treatment: Pt continues to require a safe and supportive environment, and remains GD r/t mental health. Is LPS conserved and awaiting placement.
[2019-05-16 19:00] VITALS: BP 133/79
[2019-05-16] MEDS: salt irrigation nasal spray 45 ML SPRAY NS SCH (20:27)
[2019-05-16] MEDS: atorvastatin 10mg tablet PO SCH (20:27)
--- NOTE | 2019-05-16 23:59 | NUR ---
Nursing Progress Note: Legal hold: LPS conservatorship Client on admitted on an LPS conservatorship for being a danger to herself and gravely disabled. Report received from CLOVER Berman with the use of SBAR format Why are they here: The patient is a 69 year old patient who is on LPS conservatorship and placed in a local care facility. She had decompensated while at the assisted and was making statements that she wanted to commit suicide and she was wandering away from the facility putting herself at risk. The public guardians office requested that [facility] assess the patient for hospitalization and the patient was admitted to [facility] for being a danger to herself and gravely disabled. Assessment What has happened this shift: Pt was in her room eating her dinner. When this parts data writer greeted pt, she appeared to be in a good mood. Asked how she was doing and stated she was doing good. She goes on to talk about random stuff. Pt continues to be very tangential and her conversations tend to be all over the place. States that she was brought here because she left the place where she was staying to go shopping. Denies any S/I, H/I, A/VH but does appear to be responding to internal stimuli as she appears to be talking to someone that is no there. Goes from one topic to the next one before finish the one she is on. Talks about the people she used to live with and about her daughter with whom she got in an argument with. Pt took a while to finish her dinner but eventually ate all of it. Pt requested Tylenol for back pain and this what given with good effect. Pt states multiple times that she needed to leave to go home before . When asked pt where was home, she stated that she would go back to the boarding home she came from. A little bit later, pt came out of her room asking for a book that she apparently left behind. She was instructed to go back to her room as it was already late. Before going to bed, pt attempted to have a bowel movement but was unable to. S/I, H/I: Denied A/VH: Denied, however pt does appear to be internally preoccupied Sleep: Pt had some trouble sleeping but is currently sleeping. See sleep assessment for total hours ADL's: Needs assistance, pt is incontinent. Also uses walker to ambulate Group attendance: No groups during film processing shift supervisor Were meds taken: Yes Any med S/E: none reported or observed. Mental Status Exam Appearance: Appropriate, wearing mostly blue, green scrubs under blue sweater. Eye contact: intermittent Behavior: Cooperative, very talkative, Speech: Slowed speech, sometimes hard to understand Mood: pt states "good" when asked how she is doing Affect: congruent with mood Thought process: Tangential and disorganized Thought Content: Goes from one topic to the next, from family, to the boarding house she was in, to [facility] Cognition: Alert and oriented X3 Insight: Poor Judgment: Poor Interventions PRN's used: Tylenol X1 Therapeutic interventions: One to one with the patient to assess severity of thought disorder. Reviewed her medications. Restraints/seclusion/emergency medication: N/A Justification of Continued Inpatient Treatment: The patient is here pending discharge back to her board and care.
[2019-05-17 07:42] VITALS: BP 135/78
[2019-05-17] MEDS: NUEDEXTA PO SCH ×2 (08:00→20:20)
[2019-05-17] MEDS: LORazepam 1 MG tablet PO SCH ×2 (08:01→20:20)
[2019-05-17] MEDS: docusate sod 250mg capsule PO SCH ×2 (08:01→20:20)
[2019-05-17] MEDS: nitrofurantoin macrocrystal 100mg capsule PO SCH ×2 (08:01→20:20)
[2019-05-17] MEDS: lactobacillus rhamnosus 10,000 MMU CELLS/CAPSULE PO SCH (08:01)
[2019-05-17] MEDS: cetirizine 10mg tablet PO SCH (08:01)
[2019-05-17] MEDS: venlafaxine XR 75mg capsule (Q24H) PO SCH (08:01)
[2019-05-17] MEDS: cholecalciferol (vitamin D) 400 unit tablet PO SCH ×2 (08:01→20:21)
[2019-05-17] MEDS: lisinopril 20mg tablet PO SCH (08:03)
[2019-05-17] MEDS: divalproex sodium 500mg tablet.DR PO SCH ×2 (08:03→20:21)
[2019-05-17] MEDS: potassium chloride 8mEq ER tablet PO SCH ×2 (08:03→20:21)
[2019-05-17] MEDS: oxybutynin 5mg tablet PO SCH ×3 (08:03→20:20)
[2019-05-17] MEDS: furosemide 20MG tablet PO SCH (08:04)
[2019-05-17] MEDS: levoTHYROXINE 75mcg tablet PO SCH (08:04)
[2019-05-17] MEDS: polyethylene glycol 3350 17gm powd pack PO SCH ×2 (08:18→20:20)
--- NOTE | 2019-05-17 08:26 | NUR ---
TRANSPORT TO [facility] ON MONDAY (05/20/19) [facility] Public Guardian, Thais (ph# [phone]) reported Amelia will get transported to [facility] in [place] on Monday. She requested a 30 day supply of medications to go with her. Back [facility] picked up two boxes of Amelia's medications from her previous B&C. Will ask RN to find out what meds she needs ordered. VERITO Shin Addendum: 05/17/19 at 0917 by Ibeth [place] She will be picked up around 8:45-9 AM on Monday.
[2019-05-17] MEDS: magnesium hydroxide 30ml (MOM) UD suspension PO SCH ×2 (13:05→20:20)
--- NOTE | 2019-05-17 14:43 | NUR ---
Nursing Progress Note: Legal hold: LPS conservatorship Client on admitted on an LPS conservatorship for being a danger to herself and gravely disabled. Report received from CLOVER Mcdonald with the use of SBAR format Why are they here: The patient is a 69 year old patient who is on LPS conservatorship and placed in a local care facility. She had decompensated while at the half-way and was making statements that she wanted to commit suicide and she was wandering away from the facility putting herself at risk. The public guardians office requested that [facility] assess the patient for hospitalization and the patient was admitted to [facility] for being a danger to herself and gravely disabled. Assessment What has happened this shift: Patient was standing in room, being encouraged by PCT to to go into restroom to change pants due to urine incontinence. She was moving extremely slow but remained pleasant. Thoughts continue to be tangential, begins to sing use homer Poladent to keep the yellow off your teeth. Eventually, administered medication while she was sitting on toilet. Patient up multiple times during the shift ambulating in hallway with FWW. Required minimal redirection when she attempted to use her bedside table for stability while walking. Examined by Dr. Hansen, new order for MOM BID until BM. S/I, H/I: states no when asked A/VH: denies, no response to internal stimuli noted. Sleep: 6 hours ADL's: Incontinent of urine, does not require assistance as much as keeping her focused long enough to change clothing Group attendance: COVID 19, no groups Were meds taken: Yes Any med S/E: none reported or observed. Mental Status Exam Appearance: well groomed, wears a felt blue hat, blue sweater over green scrubs Eye contact: direct when communicating Behavior: Friendly, cooperative Speech: normal rate, rhythm, and tone ([place]-SHA SHOSHONE) Mood: pleasant Affect: congruent with mood Thought process: disorganized, unable to stay on topic Thought Content: whatever pops into her head Cognition: Alert and oriented X3 Insight: Poor Judgment: Poor Interventions PRN's used: Tylenol X1 Therapeutic interventions: One to one with the patient to assess severity of thought disorder. Reviewed her medications. Restraints/seclusion/emergency medication: N/A Justification of Continued Inpatient Treatment: The patient is here pending discharge back to her board and care.
[2019-05-17 19:00] VITALS: BP 150/63
[2019-05-17] MEDS: atorvastatin 10mg tablet PO SCH (20:20)
[2019-05-17] MEDS: salt irrigation nasal spray 45 ML SPRAY NS SCH (20:21)
[2019-05-17] MEDS: acetaminophen 325mg tablet PO PRN (20:39)
[2019-05-17] MEDS: traZODone 50mg tablet PO PRN (21:42)
--- NOTE | 2019-05-17 23:58 | NUR ---
Nursing Progress Note: Legal hold: LPS conservatorship Client on admitted on an LPS conservatorship for being a danger to herself and gravely disabled. Report received from CLOVER Berman with the use of SBAR format Why are they here: The patient is a 69 year old patient who is on LPS conservatorship and placed in a local care facility. She had decompensated while at the [facility] and was making statements that she wanted to commit suicide and she was wandering away from the facility putting herself at risk. The public guardians office requested that [facility] assess the patient for hospitalization and the patient was admitted to [facility] for being a danger to herself and gravely disabled. Assessment What has happened this shift: Pt was in her room eating her dinner during shift change. Pt is perseverating on the fact that she was supposed to go home today. She states that she had shopping to take care of for [employer]. She did not eat much of her dinner stating that she is trying to lose weight. Pt was cooperative during 1:1 physical assessment and took all her HS meds without any issues, although she she does take a very long time to do this and asks what each one of them each is for . She did request Tylenol for back pain. Her thought process continues to be somewhat disorganized and tangential. She continues to be constipated, started on MOM. Pt received Trazodone for sleep before going to bed. S/I, H/I: Denied A/VH: Denies Sleep: Currently sleeping, see sleep assessment for total hours ADL's: Needs assistance, pt is incontinent. Also uses walker to ambulate Group attendance: No groups during assistant shift supervisor Were meds taken: Yes Any med S/E: none reported or observed. Mental Status Exam Appearance: Appropriate, wearing mostly blue, green scrubs under blue sweater. Eye contact: Good, direct Behavior: Cooperative, calm, talkative Speech: Slowed speech, mumbles, sometimes hard to understand Mood: Pt appears happy despite wanting to go home Affect: congruent with mood Thought process: Tangential and disorganized Thought Content: Not being able to go home today Cognition: Alert and oriented X3 Insight: Poor Judgment: Poor Interventions PRN's used: Tylenol X1, Trazodone Therapeutic interventions: One to one with the patient to assess severity of thought disorder. Reviewed her medications. Restraints/seclusion/emergency medication: N/A Justification of Continued Inpatient Treatment: The patient is here pending discharge back to her board and care.
[2019-05-18] MEDS: acetaminophen 325mg tablet PO PRN ×2 (07:01→20:29)
[2019-05-18 07:17] VITALS: BP 131/59
[2019-05-18] MEDS: polyethylene glycol 3350 17gm powd pack PO SCH ×3 (08:30→20:27)
[2019-05-18] MEDS: NUEDEXTA PO SCH ×2 (08:30→20:28)
[2019-05-18] MEDS: magnesium hydroxide 30ml (MOM) UD suspension PO SCH ×2 (08:30→20:00)
[2019-05-18] MEDS: cholecalciferol (vitamin D) 400 unit tablet PO SCH ×2 (08:31→20:28)
[2019-05-18] MEDS: docusate sod 250mg capsule PO SCH ×2 (08:31→20:29)
[2019-05-18] MEDS: lactobacillus rhamnosus 10,000 MMU CELLS/CAPSULE PO SCH (08:31)
[2019-05-18] MEDS: divalproex sodium 500mg tablet.DR PO SCH ×2 (08:31→20:28)
[2019-05-18] MEDS: LORazepam 1 MG tablet PO SCH ×2 (08:31→20:29)
[2019-05-18] MEDS: oxybutynin 5mg tablet PO SCH ×3 (08:31→20:28)
[2019-05-18] MEDS: lisinopril 20mg tablet PO SCH (08:32)
[2019-05-18] MEDS: cetirizine 10mg tablet PO SCH (08:32)
[2019-05-18] MEDS: nitrofurantoin macrocrystal 100mg capsule PO SCH ×2 (08:33→20:27)
[2019-05-18] MEDS: levoTHYROXINE 75mcg tablet PO SCH (08:33)
[2019-05-18] MEDS: venlafaxine XR 75mg capsule (Q24H) PO SCH (08:34)
[2019-05-18] MEDS: furosemide 20MG tablet PO SCH (08:34)
[2019-05-18] MEDS: potassium chloride 8mEq ER tablet PO SCH (08:34)
--- NOTE | 2019-05-18 15:22 | NUR ---
Nursing Progress Note Legal hold: LPS conservatorship Client on admitted on an [facility] conservatorship for being a danger to herself and gravely disabled. Report received from CLOVER Mcdonald with the use of SBAR format Why are they here: The patient is a 69 year old patient who is on [facility] conservatorship and placed in a local care facility. She had decompensated while at the custodial and was making statements that she wanted to commit suicide and she was wandering away from the facility putting herself at risk. The public guardians office requested that [facility] assess the patient for hospitalization and the patient was admitted to [facility] for being a danger to herself and gravely disabled. Assessment What has happened this shift: Pt sleeping at change of shift. She was compliant with medication administration. Pt cooperative with assessment. She states, feel great. Pt is very observant, she noted colors of this writers shoes, glasses, and kyle on clothing. She appears knowledgeable of her medications, and recited names and dosage of several of her medications. She has pressured speech and is difficult to interrupt. She exhibits flight of ideas as she goes from one subject to another subject without pause. Pt is incontinent of urine. Pt refused milk of magnesia, but accepted the miralax and colace. Pt repeatedly encouraged to take milk of magnesia, but she continued to refuse. Pt encouraged to walk and increase fluid intake. Pt noted to have generalized pain, which was effectively relieved by Tylenol. Pt has difficulty hearing. Pts AM blood glucose 102. S/I, H/I: None reported A/VH: Denies Sleep: No issues with sleep reported ADL's: Incontinent of urine, needs prompting to change clothing Group attendance: COVID 19, no groups Were meds taken: Yes Any med S/E: none reported or observed. Mental Status Exam Appearance: Disheveled, wears a felt blue hat, blue sweater over green scrubs Eye contact: Direct Behavior: Pleasant and cooperative Speech: normal rate, rhythm, and tone. Hearing loss Mood: Pleasant Affect: Euthymic Thought process: Tangential Thought Content: Medications, clothing, talking in Belarusian Cognition: Alert and oriented X3 Insight: Poor Judgment: Poor Interventions PRN's used: Tylenol X1 Therapeutic interventions: One to one therapeutic assessment, active listening, medication education, administration, and monitoring for effects, one to one with the patient to assess severity of thought disorder, Q15 min. safety checks, and monitored blood glucose. Restraints/seclusion/emergency medication: N/A Justification of Continued Inpatient Treatment: Pt continues to require a safe and supportive environment, and remains GD r/t mental health. Is LPS conserved and awaiting placement. Addendum: 05/18/19 at 1710 by Amelia Zhu RN Amend: ADAM Delcid ordering KUB and ultrasound due to pt's constipation and ABD pain. Pt reports pain URQ and LLQ. ABD distended and tight. Noted pt's H/H was 11.2/ 33.2 on 05/09/19. Will continue to monitor.
--- NOTE | 2019-05-18 17:32 | NUR ---
Nursing Note: Night of 05/18/19, pt to be NPO after midnight for ABD ultrasound in the morning. KUB to be completed tonight. Will continue to monitor.
[2019-05-18] MEDS ORDERED: POTASSIUM BICARB 20meq eff tab 20 MEQ TABLET.EFF PO SCH (18:41)
[2019-05-18] MEDS ORDERED: SOLI10TA2 PO (19:01)
[2019-05-18] MEDS ORDERED: ATOR10TA PO (19:01)
[2019-05-18] MEDS ORDERED: POTA20TA34 PO (19:01)
[2019-05-18] MEDS ORDERED: FURO40TA4 PO (19:01)
[2019-05-18] MEDS ORDERED: NITR50CA PO (19:01)
[2019-05-18 19:46] VITALS: BP 134/50
[2019-05-18] MEDS: salt irrigation nasal spray 45 ML SPRAY NS SCH (20:27)
[2019-05-18] MEDS: atorvastatin 10mg tablet PO SCH (20:29)
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
[2019-05-19 07:30] VITALS: BP 159/59
[2019-05-19] MEDS: nitrofurantoin macrocrystal 100mg capsule PO SCH ×2 (07:53→20:19)
[2019-05-19] MEDS: oxybutynin 5mg tablet PO SCH ×3 (07:54→20:19)
[2019-05-19] MEDS: furosemide 20MG tablet PO SCH (07:54)
[2019-05-19] MEDS: cetirizine 10mg tablet PO SCH (07:55)
[2019-05-19] MEDS: cholecalciferol (vitamin D) 400 unit tablet PO SCH ×2 (07:55→20:19)
[2019-05-19] MEDS: lisinopril 20mg tablet PO SCH (07:56)
[2019-05-19] MEDS: levoTHYROXINE 75mcg tablet PO SCH (07:56)
[2019-05-19] MEDS: venlafaxine XR 75mg capsule (Q24H) PO SCH (07:57)
[2019-05-19] MEDS: docusate sod 250mg capsule PO SCH ×2 (07:57→20:19)
[2019-05-19] MEDS: divalproex sodium 500mg tablet.DR PO SCH ×2 (07:57→20:18)
[2019-05-19] MEDS: lactobacillus rhamnosus 10,000 MMU CELLS/CAPSULE PO SCH (07:57)
[2019-05-19] MEDS: LORazepam 1 MG tablet PO SCH ×2 (07:58→20:18)
[2019-05-19] MEDS: NUEDEXTA PO SCH ×2 (07:59→20:19)
[2019-05-19] MEDS: magnesium hydroxide 30ml (MOM) UD suspension PO SCH ×3 (08:00→20:00)
[2019-05-19] MEDS: polyethylene glycol 3350 17gm powd pack PO SCH ×3 (08:00→20:19)
--- NOTE | 2019-05-19 12:39 | NUR ---
Prescriptions: Pts prescriptions called in. Pts potassium not covered and cost pt $23.36. Took the $23.36 out of pts envelope of money of $82. Pt is aware.
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
[2019-05-19 19:20] VITALS: BP 131/80
[2019-05-19] MEDS: acetaminophen 325mg tablet PO PRN (19:48)
[2019-05-19] MEDS: atorvastatin 10mg tablet PO SCH (20:18)
[2019-05-19] MEDS: salt irrigation nasal spray 45 ML SPRAY NS SCH (20:18)
[2019-05-19] MEDS: potassium chloride 8mEq ER tablet PO SCH (20:19)
--- NOTE | 2019-05-20 00:17 | NUR ---
Nursing Progress Note: Legal hold: LPS conservatorship Client on admitted on an LPS conservatorship for being a danger to herself and gravely disabled. Report received from CLOVER Berman with the use of SBAR format Why are they here: The patient is a 69 year old patient who is on LPS conservatorship and placed in a local care facility. She had decompensated while at the [facility] and was making statements that she wanted to commit suicide and she was wandering away from the facility putting herself at risk. The public guardians office requested that [facility] assess the patient for hospitalization and the patient was admitted to [facility] for being a danger to herself and gravely disabled. Assessment What has happened this shift: Pt was sitting on the toilet during shift change. Assisted pt back to her chair when done. She proceeded to finish her dinner. Pt remains in good spirits despite not wanting to go to [place]. 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 She is also observed talking to herself a couple of times. Pt was cooperative during 1:1 physical assessment and took most of her HS meds except for her Miralax and MOM again, because she states she has a BM, and if she takes these, she will get diarrhea. She seems to be overly concerned about not getting her depends dirty while she sleeps. She was up to the toilet a couple more times and at some point she got really upset because her dinner tray was taken without her being able to finish it. She states "This was my last night here and its all messed up." She was able to calm herself down. Pt was assisted to bed after brushing her gums. Pt will be picked up at around 08:45-09:00. S/I, H/I: Denies A/VH: Denies Sleep: Currently sleeping, see sleep assessment for total hours ADL's: Needs assistance, pt is incontinent. Also uses walker to ambulate Group attendance: No groups during operations supervisor 2nd shift Were meds taken: Yes Any med S/E: none reported or observed. Mental Status Exam Appearance: Appropriate, wearing mostly blue, green scrubs under blue sweater, blue hat. Had to be changed into scrubs due to her personal clothing being washed Eye contact: Good, direct Behavior: Cooperative, calm, easily irritable, friendly with other staff and patients. Speech: Slowed speech, mumbles, sometimes hard to understand Mood: Euthymic, easily irritable, fatigued Affect: Appropriate Thought process: Tangential and disorganized Thought Content: Not wanting to go to [place], concerned about getting her depends dirty, food Cognition: Alert and oriented X3 Insight: Poor Judgment: Poor Interventions PRN's used: Tylenol X1 Therapeutic interventions: One to one with the patient to assess severity of thought disorder. Reviewed her medications. Restraints/seclusion/emergency medication: N/A Justification of Continued Inpatient Treatment: The patient is here pending discharge back to her board and care.
[2019-05-20] MEDS: LORazepam 1 MG tablet PO SCH (07:45)
[2019-05-20] MEDS: divalproex sodium 500mg tablet.DR PO SCH (07:45)
[2019-05-20] MEDS: lactobacillus rhamnosus 10,000 MMU CELLS/CAPSULE PO SCH (07:45)
[2019-05-20] MEDS: docusate sod 250mg capsule PO SCH ×2 (07:45→08:00)
[2019-05-20] MEDS: levoTHYROXINE 75mcg tablet PO SCH (07:45)
[2019-05-20] MEDS: venlafaxine XR 75mg capsule (Q24H) PO SCH (07:45)
[2019-05-20 07:46] VITALS: BP_SYST 124
[2019-05-20] MEDS: furosemide 20MG tablet PO SCH (07:46)
[2019-05-20] MEDS: lisinopril 20mg tablet PO SCH (07:46)
[2019-05-20] MEDS: nitrofurantoin macrocrystal 100mg capsule PO SCH (07:46)
[2019-05-20] MEDS: cetirizine 10mg tablet PO SCH (07:46)
[2019-05-20] MEDS: potassium chloride 8mEq ER tablet PO SCH (07:46)
[2019-05-20] MEDS: celeCOXIB 100mg capsule PO PRN (07:46)
[2019-05-20] MEDS: cholecalciferol (vitamin D) 400 unit tablet PO SCH (07:46)
[2019-05-20] MEDS: oxybutynin 5mg tablet PO SCH (07:46)
[2019-05-20] MEDS: polyethylene glycol 3350 17gm powd pack PO SCH ×2 (07:47→08:00)
[2019-05-20] MEDS: NUEDEXTA PO SCH (07:47)
[2019-05-20] MEDS: magnesium hydroxide 30ml (MOM) UD suspension PO SCH ×2 (07:48→08:00)
--- NOTE | 2019-05-20 11:02 | NUR ---
DISCHARGE NOTE: Pt discharged at 924. Picked up by county school bus driver, wheeled off unit in w/c accompanied by PCT. Pt was discharged to [facility] in [place]. RX's and POM previously stored in our pharmacy sent with the school bus driver.
== END 2019-05-20 09:10 | disposition home or self-care (01) | DRG 885 ==
LOC: ADULT MH 00:05
PROVIDERS: ADMIT Psychiatry & Neurology Psychiatry; ATTEND Psychiatry & Neurology Psychiatry
DX: F31.9 Bipolar disorder, unspecified (principal); N13.6 Pyonephrosis; I25.10 Atherosclerotic heart disease of native coronary artery without angina pectoris; I10 Essential (primary) hypertension; E11.9 Type 2 diabetes mellitus without complications; E03.9 Hypothyroidism, unspecified; E11.22 Type 2 diabetes mellitus with diabetic chronic kidney disease; E78.00 Pure hypercholesterolemia, unspecified; F03.90 Unspecified dementia, unspecified severity, without behavioral disturbance, psychotic disturbance, mood disturbance, and anxiety; F17.200 Nicotine dependence, unspecified, uncomplicated; I12.9 Hypertensive chronic kidney disease with stage 1 through stage 4 chronic kidney disease, or unspecified chronic kidney disease; J44.9 Chronic obstructive pulmonary disease, unspecified; H91.90 Unspecified hearing loss, unspecified ear; K59.09 Other constipation; E78.5 Hyperlipidemia, unspecified; N18.9 Chronic kidney disease, unspecified; N28.1 Cyst of kidney, acquired; Z90.710 Acquired absence of both cervix and uterus; Z82.49 Family history of ischemic heart disease and other diseases of the circulatory system; Z80.9 Family history of malignant neoplasm, unspecified; Z98.51 Tubal ligation status; Z88.2 Allergy status to sulfonamides
CPT/HCPCS: 36415; 71046; 74018; 76700; 80053; 80061; 80164; 80305; 80320; 81003; 82948; 84443; 85025; 87081; 99285; Z7610